=== PATIENT | female | born 1945 | race Caucasian/White ===

== ENCOUNTER 2024-07-12 18:06 | Inpatient (IN) | payer MEDICARE, OTHER ==
[~2024-07-12] VITALS: Ht 152.4 cm; Wt 48.5 kg
[2024-07-12 18:41] VITALS: BP 131/67; TEMP 99.2; O2SAT 94
[2024-07-12 20:50] VITALS: BP 156/63; TEMP 97.9; O2SAT 94
[2024-07-12] MEDS ORDERED: ACETAMINOPHEN 325 MG TABLET PO PRN (21:15)
[2024-07-12] MEDS ORDERED: RIVA20TA PO (21:33)
[2024-07-12] MEDS ORDERED: ZINC113P3 TP (21:33)
[2024-07-12] MEDS ORDERED: RXENO SQ (21:33)
[2024-07-12] MEDS ORDERED: SIMV-46 PO (21:33)
[2024-07-12] MEDS ORDERED: [UNRECOGNIZED DRUG - CODE] PO (21:33)
[2024-07-12] MEDS ORDERED: MAGN400O6 PO (21:33)
[2024-07-12] MEDS ORDERED: LEVO50TA8 PO (21:33)
[2024-07-12] MEDS ORDERED: ATOR10TA PO (21:33)
[2024-07-13] MEDS ORDERED: AL HYDROX PO SCH (00:15)
[2024-07-13] MEDS ORDERED: MAG HYDROX PO SCH (00:15)
[2024-07-13] MEDS ORDERED: SIMETH PO SCH (00:15)
[2024-07-13] MEDS ORDERED: MAGNESIUM HYDROXIDE 30 ML LIQUID UDC PO PRN (00:15)
[2024-07-13] MEDS: OXYCODONE/APAP 5-325 MG TABLET PO PRN (05:32)
[2024-07-13] MEDS: LEVOTHYROXINE SODIUM 50 MCG TABLET PO SCH (06:49)
[2024-07-13 06:59] VITALS: BP 127/70; TEMP 97.9; O2SAT 93
[2024-07-13] MEDS ORDERED: ATORVASTATIN 10 MG TABLET PO SCH (09:00)
[2024-07-13 16:15] VITALS: BP 135/55; TEMP 97.6; O2SAT 97
[2024-07-13] MEDS: RIVAROXABAN 10 MG TABLET PO SCH (17:40)
[2024-07-13 20:15] VITALS: BP 132/71; TEMP 97.7; O2SAT 91
[2024-07-13] MEDS: ATORVASTATIN 10 MG TABLET PO SCH (20:49)
[2024-07-13] MEDS: BUTALB/ACETAMINOPHEN/CAFFEINE CAPSULE PO PRN (20:50)
[2024-07-13] MEDS ORDERED: SIMVASTATIN 20 MG TABLET PO SCH (21:00)
[2024-07-14 05:09] VITALS: O2SAT 98
[2024-07-14 07:06] VITALS: BP 158/73; TEMP 98.1; O2SAT 94
[2024-07-14] MEDS: METHYL SALICYLATE/MENTHOL CREAM 28 GM TUBE TOP SCH (08:30)
[2024-07-14 09:30] LABS: BASOPHILS # (AUTO) 0.1 K/UL (0.0-0.2); BASOPHILS % (AUTO) 1.2 % (0.0-2.0); EOSINOPHILS # (AUTO) 0.4 K/uL (0.0-0.7); EOSINOPHILS % (AUTO) 4.1 % (0.0-7.0); HEMATOCRIT 33.2 % (31.2-41.9); LYMPHOCYTES # (AUTO) 0.6 K/uL (0.8-4.8); LYMPHOCYTES % (AUTO) 7.5 % (20.5-51.5); MEAN CORPUSCULAR HEMOGLOBIN 30.6 uug (24.7-32.8); MEAN CORPUSCULAR HGB CONC 33 g/dL (32.3-35.6); MONOCYTES # (AUTO) 0.8 K/uL (0.1-1.30); MONOCYTES % (AUTO) 9.3 % (0.0-11.0); NEUTROPHILS # (AUTO) 6.7 K/uL (1.8-8.9); NEUTROPHILS % (AUTO) 77.9 % (38.5-71.5); PLATELET COUNT (AUTO) 712 K/uL (179-408); RED BLOOD CELL COUNT(AUTO) 3.61 MIL/uL (3.63-4.92); RED CELL DISTRIBUTION WIDTH 14.9 % (12.3-17.7); WHITE BLOOD COUNT (AUTO) 8.6 K/uL (3.8-11.8)
[2024-07-14 09:38] LABS: DIFFERENTIAL COMMENT 1
[2024-07-14] MEDS ORDERED: HYDROMORPHONE HCL 2 MG TABLET PO PRN (10:15)
[2024-07-14 10:54] LABS: ALANINE AMINOTRANSFERASE 13 U/L (14-59); ALBUMIN 2.4 g/dL (3.4-5.0); ALKALINE PHOSPHATASE 133 U/L (50-136); ASPARTATE AMINOTRANSFERASE 19 U/L (15-37); BILIRUBIN,TOTAL 0.5 mg/dL (0.2-1.0); CALCIUM 8.3 mg/dL (8.5-10.1); CARBON DIOXIDE 31 mmol/L (21-32); CHLORIDE 101 mmol/L (98-107); CHOLESTEROL 162 mg/dL (<200); CREATININE 0.8 mg/dL (0.6-1.3); GLUCOSE 130 mg/dL (74-106); HDL CHOLESTEROL 43 mg/dL (40-60); MAGNESIUM 2.2 mg/dL (1.8-2.4); PHOSPHOROUS 2.3 mg/dL (2.5-4.9); POTASSIUM 3.9 mmol/L (3.5-5.1); SODIUM SERUM 139 mmol/L (136-145); TOTAL PROTEIN, SERUM 6.8 g/dL (6.4-8.2); TRIGLYCERIDES 123 MG/DL (30-150); UREA NITROGEN, BLOOD 17 mg/dL (7-18)
[2024-07-14 12:25] LABS: IRON, SERUM 45 ug/dL (50-175)
[2024-07-14] MEDS ORDERED: OXYC-128 PO (13:58)
[2024-07-14] MEDS ORDERED: BUTA1CAP46 PO (13:58)
[2024-07-14] MEDS ORDERED: HYDR4TAB4 PO (14:00)
[2024-07-15] MEDS ORDERED: HYDR500C2 PO (11:13)
== END 2024-07-14 12:09 | disposition short-term general hospital (02) | DRG 560 ==
PROVIDERS: ADMIT Physical Medicine & Rehabilitation Pain Medicine; ATTEND Physical Medicine & Rehabilitation Pain Medicine
DX: S72.142D Displaced intertrochanteric fracture of left femur, subsequent encounter for closed fracture with routine healing (principal); D68.59 Other primary thrombophilia; W01.0XXD Fall on same level from slipping, tripping and stumbling without subsequent striking against object, subsequent encounter; D64.9 Anemia, unspecified; E03.9 Hypothyroidism, unspecified; E78.5 Hyperlipidemia, unspecified; E88.09 Other disorders of plasma-protein metabolism, not elsewhere classified; G43.909 Migraine, unspecified, not intractable, without status migrainosus; M81.0 Age-related osteoporosis without current pathological fracture; Z86.711 Personal history of pulmonary embolism; M19.90 Unspecified osteoarthritis, unspecified site; J43.9 Emphysema, unspecified; I70.0 Atherosclerosis of aorta; Z87.891 Personal history of nicotine dependence
CPT/HCPCS: 36415; 82652; 83550; 83735; 84100; 84443; 85025

== ENCOUNTER 2024-07-14 12:03 | Inpatient (IN) | payer MEDICARE, OTHER ==
[2024-07-14] VITALS (29 sets, daily range): BP systolic 94–143; BP diastolic 48–102; TEMP 97.7–98; O2SAT 91–98
[~2024-07-14] VITALS: Ht 149.9 cm; Wt 44.5 kg
[~2024-07-14 12:03] MED LIST: ATOR10TA PO; LEVO50TA8 PO; MAGN400O6 PO; RIVA20TA PO; RXENO SQ; ZINC113P3 TP; [UNRECOGNIZED DRUG - CODE] PO
[2024-07-14] MEDS ORDERED: ADENOSINE 6 MG/2 ML SYR IV ONE ×2 (12:13→12:21)
[2024-07-14] MEDS: ADENOSINE 6 MG/2 ML SYR IV ONE ×2 (12:21→12:26)
[2024-07-14] MEDS: AMIODARONE HCL IV 150 MG in IV DEXTROSE 5% 100 ML IV ONE (13:02)
[2024-07-14 13:03] LABS: BASOPHILS # (AUTO) 0.1 K/UL (0.0-0.2); BASOPHILS % (AUTO) 1.1 % (0.0-2.0); EOSINOPHILS # (AUTO) 0.3 K/uL (0.0-0.7); EOSINOPHILS % (AUTO) 3.8 % (0.0-7.0); HEMATOCRIT 33.6 % (31.2-41.9); HEMOGLOBIN 10.6 g/dL (10.9-14.3); LYMPHOCYTES # (AUTO) 0.8 K/uL (0.8-4.8); LYMPHOCYTES % (AUTO) 10.4 % (20.5-51.5); MEAN CORPUSCULAR HGB CONC 32 g/dL (32.3-35.6); MONOCYTES % (AUTO) 13.2 % (0.0-11.0); NEUTROPHILS # (AUTO) 5.7 K/uL (1.8-8.9); NEUTROPHILS % (AUTO) 71.5 % (38.5-71.5); PLATELET COUNT (AUTO) 615 K/uL (179-408); RED BLOOD CELL COUNT(AUTO) 3.65 MIL/uL (3.63-4.92); RED CELL DISTRIBUTION WIDTH 15.3 % (12.3-17.7); WHITE BLOOD COUNT (AUTO) 7.9 K/uL (3.8-11.8)
[2024-07-14 13:20] LABS: DIFFERENTIAL COMMENT 1
[2024-07-14] MEDS ORDERED: IV NORMAL SALINE 250 ML IV ONE (13:22)
[2024-07-14] MEDS ORDERED: IOHEXOL 350 100 ML INFUS..BTL ONE (13:22)
[2024-07-14] MEDS ORDERED: SWABABLE VALVE TRANSFER SET EA MC ONE (13:22)
[2024-07-14] MEDS: AMIODARONE HCL IV 450 MG in IV DEXTROSE 5% 250 ML IV PRN (13:43)
[2024-07-14 13:44] LABS: CARBON DIOXIDE 27 mmol/L (21-32); CHLORIDE 101 mmol/L (98-107); CREATININE 0.9 mg/dL (0.6-1.3); GLUCOSE 131 mg/dL (74-106); POTASSIUM 3.7 mmol/L (3.5-5.1); SODIUM SERUM 138 mmol/L (136-145); UREA NITROGEN, BLOOD 21 mg/dL (7-18)
[2024-07-14 13:57] LABS: ALANINE AMINOTRANSFERASE 16 U/L (14-59); ALBUMIN 2.3 g/dL (3.4-5.0); ALKALINE PHOSPHATASE 129 U/L (50-136); ASPARTATE AMINOTRANSFERASE 22 U/L (15-37); BILIRUBIN,DIRECT 0.3 mg/dL (0.0-0.2); BILIRUBIN,TOTAL 0.7 mg/dL (0.2-1.0); NT-PRO BNP 967 pg/mL (0-125); TOTAL PROTEIN, SERUM 6.3 g/dL (6.4-8.2)
[2024-07-14] MEDS ORDERED: BUTA1CAP46 PO (13:58)
[2024-07-14] MEDS ORDERED: OXYC-128 PO (13:58)
[2024-07-14] MEDS ORDERED: HYDR4TAB4 PO (14:00)
[2024-07-14] MEDS ORDERED: NOREPINEPHRINE 8MG/NS 250ML 250 ML IV ONE (14:05)
[2024-07-14] MEDS ORDERED: METOCLOPRAMIDE HCL 10 MG/2 ML VIAL ONE (14:06)
[2024-07-14] MEDS: METOCLOPRAMIDE HCL 10 MG/2 ML VIAL IV ONE (14:42)
[2024-07-14] MEDS: NOREPINEPHRINE 8MG/NS 250ML 250 ML IV PRN (14:59)
[2024-07-14] MEDS ORDERED: AL HYDROX PO SCH (15:00)
[2024-07-14] MEDS ORDERED: CAFFEINE PO PRN (15:00)
[2024-07-14] MEDS ORDERED: SIMETH PO SCH (15:00)
[2024-07-14] MEDS ORDERED: ACETAMINOPHEN PO PRN (15:00)
[2024-07-14] MEDS ORDERED: MAGNESIUM HYDROXIDE 30 ML LIQUID UDC PO PRN ×2 (15:00→15:45)
[2024-07-14] MEDS ORDERED: BUTALB PO PRN (15:00)
[2024-07-14] MEDS ORDERED: MAG HYDROX PO SCH (15:00)
[2024-07-14] MEDS ORDERED: ONDANSETRON 4 MG/2 ML VIAL IV PRN (15:45)
[2024-07-14] MEDS ORDERED: ACETAMINOPHEN 325 MG TABLET PO PRN (15:45)
[2024-07-14] MEDS ORDERED: PHENYLEPHRINE IV 50 MG in IV NORMAL SALINE 245 ML IV PRN (17:00)
[2024-07-14] MEDS ORDERED: PHENYLEPHRINE IV 100 MG in IV NORMAL SALINE 240 ML IV PRN (17:45)
[2024-07-14] MEDS: HYDROMORPHONE HCL 2 MG TABLET PO PRN (19:23)
[2024-07-14] MEDS: RIVAROXABAN 10 MG TABLET PO SCH (19:28)
[2024-07-14] MEDS: MELATONIN 3 MG TABLET PO SCH (21:35)
[2024-07-15] VITALS (51 sets, daily range): BP systolic 81–149; BP diastolic 44–89; TEMP 97.2–98.6; O2SAT 90–99
[2024-07-15 03:16] LABS: BASOPHILS # (AUTO) 0.1 K/UL (0.0-0.2); EOSINOPHILS # (AUTO) 0.3 K/uL (0.0-0.7); EOSINOPHILS % (AUTO) 3.3 % (0.0-7.0); HEMATOCRIT 31.3 % (31.2-41.9); HEMOGLOBIN 10.2 g/dL (10.9-14.3); LYMPHOCYTES # (AUTO) 1.2 K/uL (0.8-4.8); LYMPHOCYTES % (AUTO) 11.4 % (20.5-51.5); MEAN CORPUSCULAR HEMOGLOBIN 29.6 uug (24.7-32.8); MEAN CORPUSCULAR HGB CONC 33 g/dL (32.3-35.6); MEAN CORPUSCULAR VOLUME 90.7 fL (75.5-95.3); MONOCYTES # (AUTO) 1.5 K/uL (0.1-1.30); MONOCYTES % (AUTO) 14.4 % (0.0-11.0); NEUTROPHILS # (AUTO) 7.4 K/uL (1.8-8.9); NEUTROPHILS % (AUTO) 69.9 % (38.5-71.5); PLATELET COUNT (AUTO) 774 K/uL (179-408); RED BLOOD CELL COUNT(AUTO) 3.45 MIL/uL (3.63-4.92); RED CELL DISTRIBUTION WIDTH 15.5 % (12.3-17.7); WHITE BLOOD COUNT (AUTO) 10.6 K/uL (3.8-11.8)
[2024-07-15 03:27] LABS: DIFFERENTIAL COMMENT 1
[2024-07-15 03:41] LABS: CALCIUM 7.9 mg/dL (8.5-10.1); CARBON DIOXIDE 27 mmol/L (21-32); CHLORIDE 101 mmol/L (98-107); CREATININE 0.8 mg/dL (0.6-1.3); GLUCOSE 128 mg/dL (74-106); MAGNESIUM 2.1 mg/dL (1.8-2.4); PHOSPHOROUS 2.5 mg/dL (2.5-4.9); SODIUM SERUM 136 mmol/L (136-145); UREA NITROGEN, BLOOD 15 mg/dL (7-18)
[2024-07-15 04:12] LABS: THYROID STIMULATING HORMONE 9.612 mIU/mL (0.358-3.740)
[2024-07-15] MEDS ORDERED: MAG HYDROX/AL HYDROX/SIMETH 30 ML LIQUID UDC PO PRN (05:30)
[2024-07-15] MEDS: LEVOTHYROXINE SODIUM 50 MCG TABLET PO SCH (06:57)
[2024-07-15] MEDS: PANTOPRAZOLE SODIUM 40 MG VIAL IV SCH (08:43)
[2024-07-15] MEDS: OXYCODONE/APAP 5-325 MG TABLET PO PRN (08:53)
[2024-07-15] MEDS: AMIODARONE HCL 200 MG TABLET PO SCH (09:26)
[2024-07-15] MEDS ORDERED: HYDR500C2 PO (11:13)
[2024-07-15] MEDS: HYDROXYUREA 500 MG CAPSULE PO SCH (13:52)
[2024-07-15] MEDS: SENNOSIDES 1 TABLET PO ONE (19:35)
[2024-07-15] MEDS: ATORVASTATIN 10 MG TABLET PO SCH (20:59)
[2024-07-15] MEDS: SENNOSIDES 1 TABLET PO PRN (20:59)
[2024-07-15] MEDS ORDERED: MELATONIN 3 MG TABLET PO SCH (21:00)
[2024-07-15] MEDS: MELATONIN 3 MG TABLET PO SCH (21:03)
[2024-07-15] MEDS ORDERED: PIPERACILLIN SODIUM/TAZOBACTAM 3.375 G in IV DEXTROSE 5% 50 ML IV SCH (22:00)
[2024-07-15] MEDS ORDERED: PIPERACILLIN/TAZOBACTAM/D5W 50 ML IV ONE ×2 (23:49)
[2024-07-16] VITALS (20 sets, daily range): BP systolic 99–126; BP diastolic 42–75; TEMP 98–98.8; O2SAT 89–99
[2024-07-16] MEDS: PIPERACILLIN SODIUM/TAZOBACTAM 3.375 G in IV DEXTROSE 5% 50 ML IV SCH (00:02)
[2024-07-16 02:17] LABS: *BILIRUBIN,URIN NEGATIVE (NEGATIVE); *BLOOD, URINE 2+ (NEGATIVE); *CLARITY,URINE CLEAR (CLEAR); *COLOR,URINE YELLOW (YELLOW); *KETONES,URINE NEGATIVE (NEGATIVE); *PROTEIN,URINE TRACE (NEGATIVE); *UROBILINOGEN,URINE 0.2 E.U./dl (NORMAL); LEUKOCYTE ESTERASE ,URINE 3+ (NEGATIVE); NITRITE, URINE POSITIVE (NEGATIVE); UGLUCOSE NEGATIVE (NEGATIVE)
[2024-07-16 02:46] LABS: BACTERIA,URINE MANY /HPF (NONE SEEN); SQUAMOUS EPITHELIAL CELL,UR MODERATE /HPF (NONE SEEN); WBC,URINE 20-50 /HPF (0-3)
[2024-07-16 02:47] LABS: MUCUS,URINE FEW /LPF (0-FEW); YEAST,URINE FEW /HPF (NONE SEEN)
[2024-07-16 05:25] LABS: BASOPHILS # (AUTO) 0.1 K/UL (0.0-0.2); BASOPHILS % (AUTO) 1.1 % (0.0-2.0); EOSINOPHILS # (AUTO) 0.3 K/uL (0.0-0.7); EOSINOPHILS % (AUTO) 3.7 % (0.0-7.0); HEMATOCRIT 28.4 % (31.2-41.9); HEMOGLOBIN 9.3 g/dL (10.9-14.3); LYMPHOCYTES # (AUTO) 1.2 K/uL (0.8-4.8); LYMPHOCYTES % (AUTO) 12.7 % (20.5-51.5); MEAN CORPUSCULAR HEMOGLOBIN 30.2 uug (24.7-32.8); MEAN CORPUSCULAR HGB CONC 33 g/dL (32.3-35.6); MEAN CORPUSCULAR VOLUME 91.9 fL (75.5-95.3); MONOCYTES # (AUTO) 1.1 K/uL (0.1-1.30); MONOCYTES % (AUTO) 12.4 % (0.0-11.0); NEUTROPHILS # (AUTO) 6.5 K/uL (1.8-8.9); NEUTROPHILS % (AUTO) 70.1 % (38.5-71.5); PLATELET COUNT (AUTO) 625 K/uL (179-408); RED BLOOD CELL COUNT(AUTO) 3.09 MIL/uL (3.63-4.92); RED CELL DISTRIBUTION WIDTH 14.8 % (12.3-17.7); WHITE BLOOD COUNT (AUTO) 9.3 K/uL (3.8-11.8)
[2024-07-16 05:53] LABS: IRON, SERUM 43 ug/dL (50-175)
[2024-07-16 06:01] LABS: ALANINE AMINOTRANSFERASE 18 U/L (14-59); ALKALINE PHOSPHATASE 151 U/L (50-136); ASPARTATE AMINOTRANSFERASE 21 U/L (15-37); BILIRUBIN,TOTAL 0.6 mg/dL (0.2-1.0); CARBON DIOXIDE 31 mmol/L (21-32); CHLORIDE 102 mmol/L (98-107); CREATININE 0.8 mg/dL (0.6-1.3); GLUCOSE 108 mg/dL (74-106); MAGNESIUM 2.3 mg/dL (1.8-2.4); PHOSPHOROUS 3.2 mg/dL (2.5-4.9); POTASSIUM 4.1 mmol/L (3.5-5.1); SODIUM SERUM 137 mmol/L (136-145); TOTAL PROTEIN, SERUM 5.6 g/dL (6.4-8.2); UREA NITROGEN, BLOOD 12 mg/dL (7-18)
[2024-07-16] MEDS: PIPERACILLIN SODIUM/TAZOBACTAM 3.375 G in IV DEXTROSE 5% 100 ML IV SCH (13:47)
[2024-07-16] MEDS: FLUTICASONE/VILANTEROL 1 EACH BLST.W.DEV INH SCH (13:47)
[2024-07-16] MEDS: ENSURE ENLIVE (VAN) 240 ML LIQUID PO SCH (17:25)
[2024-07-16] MEDS: ALBUTEROL SULFATE 2.5 MG/ 0.5 ML NEBU NEB PRN (19:57)
[2024-07-16] MEDS: IPRATROPIUM BROMIDE 0.5 MG/2.5 ML NEBU NEB PRN (19:57)
[2024-07-17] VITALS (7 sets, daily range): BP systolic 109–145; BP diastolic 54–70; TEMP 97.5–98.4; O2SAT 93–96
[2024-07-17] MEDS: PANTOPRAZOLE SODIUM 40 MG TABLET.DR PO SCH (06:44)
[2024-07-17] MEDS ORDERED: LACTULOSE 20 G/30 ML LIQUID UDC PO PRN (09:15)
[2024-07-17] MEDS: LACTULOSE 20 G/30 ML LIQUID UDC PO ONE (09:58)
[2024-07-17] MEDS: BISACODYL 10 MG SUPP.RECT RC ONE (10:36)
[2024-07-17] MEDS ORDERED: MAG30ORA PO (15:43)
[2024-07-17] MEDS ORDERED: FLUT1BLS INH (15:43)
[2024-07-17] MEDS ORDERED: AMIO200T6 PO (15:43)
[2024-07-17] MEDS ORDERED: ATOR10TA PO (15:43)
[2024-07-17] MEDS ORDERED: MELA3TAB41 PO (15:43)
[2024-07-17] MEDS ORDERED: ACID1TAB4 PO (15:43)
[2024-07-17] MEDS ORDERED: SENN-175 PO (15:43)
[2024-07-17] MEDS ORDERED: MAGN400O6 PO (15:43)
[2024-07-17] MEDS ORDERED: PANT40TA49 PO (15:43)
[2024-07-17] MEDS ORDERED: HYDR2TAB7 PO (15:43)
[2024-07-17] MEDS ORDERED: DOCU-141 PO (15:43)
[2024-07-17] MEDS ORDERED: Lactose-Free Food PO (15:43)
[2024-07-17] MEDS ORDERED: IPRA0.2S6 NEB (15:43)
[2024-07-17] MEDS ORDERED: ACET325T53 PO (15:43)
[2024-07-17] MEDS ORDERED: ALBU2.5V13 NEB (15:43)
[2024-07-17] MEDS ORDERED: AMOX-430 PO (15:43)
== END 2024-07-17 17:06 | DRG 308 ==
LOC: ER 12:03 → CCU 15:52 → TELE3 07-16 10:55
PROC: 02HV33Z Insertion of Infusion Device into Superior Vena Cava, Percutaneous Approach (ICD-10-PCS; principal; 2024-07-14)
DX: I48.0 Paroxysmal atrial fibrillation (principal); E43 Unspecified severe protein-calorie malnutrition; R57.1 Hypovolemic shock; J69.0 Pneumonitis due to inhalation of food and vomit; I50.31 Acute diastolic (congestive) heart failure; Z68.1 Body mass index [BMI] 19.9 or less, adult; D68.59 Other primary thrombophilia; I47.10 Supraventricular tachycardia, unspecified; S72.002D Fracture of unspecified part of neck of left femur, subsequent encounter for closed fracture with routine healing; W19.XXXD Unspecified fall, subsequent encounter; E78.5 Hyperlipidemia, unspecified; E03.9 Hypothyroidism, unspecified; D64.9 Anemia, unspecified; J44.9 Chronic obstructive pulmonary disease, unspecified; J43.2 Centrilobular emphysema; E88.09 Other disorders of plasma-protein metabolism, not elsewhere classified; M81.0 Age-related osteoporosis without current pathological fracture; M15.9 Polyosteoarthritis, unspecified; D75.839 Thrombocytosis, unspecified; R79.89 Other specified abnormal findings of blood chemistry; K59.00 Constipation, unspecified; I11.0 Hypertensive heart disease with heart failure; I28.8 Other diseases of pulmonary vessels; Z86.73 Personal history of transient ischemic attack (TIA), and cerebral infarction without residual deficits; Z86.711 Personal history of pulmonary embolism; Z79.01 Long term (current) use of anticoagulants; Z79.890 Hormone replacement therapy; Z74.09 Other reduced mobility; Z79.899 Other long term (current) drug therapy; Z87.891 Personal history of nicotine dependence
CPT/HCPCS: 36415; 71045; 71275; 82378; 83550; 83735; 84100; 84443; 84484; 85025; 85730; 93005; 93307; 94640; G0378; J0153; J0282; J2470; J2543; J2765; J3590; J7040; J7050; Q9967

== ENCOUNTER 2024-07-17 17:27 | Inpatient (IN) | payer MEDICARE, OTHER ==
[~2024-07-17] VITALS: Ht 149.9 cm; Wt 49.9 kg
[~2024-07-17 17:27] MED LIST changes: +ACET325T53 PO; +ACID1TAB4 PO; +ALBU2.5V13 NEB; +AMIO200T6 PO; +AMOX-430 PO; +DOCU-141 PO; +FLUT1BLS INH; +HYDR2TAB7 PO; +HYDR4TAB4 PO; +HYDR500C2 PO; +IPRA0.2S6 NEB; +Lactose-Free Food PO; +MAG30ORA PO; +MELA3TAB41 PO; +OXYC-128 PO; +PANT40TA49 PO; -RXENO SQ; +SENN-175 PO
[2024-07-17 17:30] VITALS: BP 141/73; TEMP 98; O2SAT 97
[2024-07-17] MEDS ORDERED: ALBUTEROL SULFATE 2.5 MG/ 0.5 ML NEBU NEB PRN (20:15)
[2024-07-17] MEDS ORDERED: IPRATROPIUM BROMIDE 0.5 MG/2.5 ML NEBU NEB PRN (20:15)
[2024-07-17] MEDS: SENNOSIDES 1 TABLET PO SCH (21:00)
[2024-07-17] MEDS: DOCUSATE SODIUM 100 MG CAPSULE PO SCH (21:00)
[2024-07-17] MEDS ORDERED: REMEDY ESSENTIAL ZINC PASTE 113 GM TOP PRN (21:30)
[2024-07-17] MEDS ORDERED: AMOXICILLIN-CLAVUL 875-125MG TABLET ONE (21:55)
[2024-07-17] MEDS: ATORVASTATIN 10 MG TABLET PO SCH (22:02)
[2024-07-17] MEDS: AMOXICILLIN-CLAVUL 875-125MG TABLET PO SCH (22:02)
[2024-07-17] MEDS: AMIODARONE HCL 200 MG TABLET PO SCH (22:02)
[2024-07-17] MEDS: MELATONIN 3 MG TABLET PO SCH (22:03)
[2024-07-17 23:09] VITALS: BP 153/58; TEMP 98.1; O2SAT 96
[2024-07-18 04:07] VITALS: O2SAT 96
[2024-07-18] MEDS: LEVOTHYROXINE SODIUM 50 MCG TABLET PO SCH (06:41)
[2024-07-18] MEDS: PANTOPRAZOLE SODIUM 40 MG TABLET.DR PO SCH (06:41)
[2024-07-18 07:08] VITALS: BP 111/57; TEMP 97.5; O2SAT 95
[2024-07-18] MEDS ORDERED: LACTOSE FREE FOOD PO SCH (08:00)
[2024-07-18] MEDS: MIRALAX 17 GM POWD.PACK PO SCH (09:00)
[2024-07-18 09:30] VITALS: BP 121/57; O2SAT 95
[2024-07-18] MEDS: ENSURE ENLIVE (VAN) 240 ML LIQUID PO SCH (10:04)
[2024-07-18] MEDS: FLUTICASONE/VILANTEROL 1 EACH BLST.W.DEV INH SCH (10:06)
[2024-07-18] MEDS: OXYCODONE/APAP 5-325 MG TABLET PO PRN (10:07)
[2024-07-18] MEDS: ACIDOPHILUS/BULGARICUS CHEW TAB PO SCH (10:07)
[2024-07-18] MEDS: HYDROXYUREA 500 MG CAPSULE PO SCH (10:50)
[2024-07-18 16:05] VITALS: BP 113/46; TEMP 97.9; O2SAT 94
[2024-07-18] MEDS: BUTALB/ACETAMINOPHEN/CAFFEINE CAPSULE PO PRN (17:08)
[2024-07-18] MEDS: RIVAROXABAN 10 MG TABLET PO SCH (17:09)
[2024-07-18 21:01] VITALS: BP 123/43; TEMP 98.2; O2SAT 97
[2024-07-19 06:53] VITALS: BP 119/78; TEMP 97.7; O2SAT 93
[2024-07-19 15:22] VITALS: BP 112/53; TEMP 97.8; O2SAT 94
[2024-07-19 21:06] VITALS: BP 125/52; TEMP 98; O2SAT 95
[2024-07-20 05:56] VITALS: BP 120/49; TEMP 97.9; O2SAT 97
[2024-07-20 08:14] LABS: BASOPHILS # (AUTO) 0.3 K/UL (0.0-0.2); BASOPHILS % (AUTO) 3.3 % (0.0-2.0); DIFFERENTIAL COMMENT 1; EOSINOPHILS # (AUTO) 0.3 K/uL (0.0-0.7); EOSINOPHILS % (AUTO) 3.6 % (0.0-7.0); HEMATOCRIT 30.7 % (31.2-41.9); HEMOGLOBIN 10.1 g/dL (10.9-14.3); LYMPHOCYTES # (AUTO) 1.2 K/uL (0.8-4.8); LYMPHOCYTES % (AUTO) 12.8 % (20.5-51.5); MEAN CORPUSCULAR HEMOGLOBIN 30.5 uug (24.7-32.8); MEAN CORPUSCULAR HGB CONC 33 g/dL (32.3-35.6); MEAN CORPUSCULAR VOLUME 92.7 fL (75.5-95.3); MONOCYTES # (AUTO) 1.1 K/uL (0.1-1.30); MONOCYTES % (AUTO) 12.1 % (0.0-11.0); NEUTROPHILS # (AUTO) 6.3 K/uL (1.8-8.9); NEUTROPHILS % (AUTO) 68.2 % (38.5-71.5); PLATELET COUNT (AUTO) 870 K/uL (179-408); RED BLOOD CELL COUNT(AUTO) 3.31 MIL/uL (3.63-4.92); RED CELL DISTRIBUTION WIDTH 15.2 % (12.3-17.7); WHITE BLOOD COUNT (AUTO) 9.2 K/uL (3.8-11.8)
[2024-07-20 08:57] LABS: ALANINE AMINOTRANSFERASE 17 U/L (14-59); ALBUMIN 2.3 g/dL (3.4-5.0); ALKALINE PHOSPHATASE 149 U/L (50-136); ASPARTATE AMINOTRANSFERASE 16 U/L (15-37); BILIRUBIN,TOTAL 0.5 mg/dL (0.2-1.0); CALCIUM 8.2 mg/dL (8.5-10.1); CARBON DIOXIDE 28 mmol/L (21-32); CHLORIDE 104 mmol/L (98-107); CREATININE 0.9 mg/dL (0.6-1.3); GLUCOSE 103 mg/dL (74-106); MAGNESIUM 2.1 mg/dL (1.8-2.4); PHOSPHOROUS 3.3 mg/dL (2.5-4.9); POTASSIUM 3.8 mmol/L (3.5-5.1); SODIUM SERUM 139 mmol/L (136-145); TOTAL PROTEIN, SERUM 6.3 g/dL (6.4-8.2); UREA NITROGEN, BLOOD 16 mg/dL (7-18)
[2024-07-20 15:24] VITALS: BP 99/51; TEMP 98.2; O2SAT 91
[2024-07-20 16:54] VITALS: O2SAT 95
[2024-07-20 19:31] VITALS: BP 119/47; TEMP 98.1; O2SAT 97
[2024-07-20] MEDS: BUTALB/ACETAMINOPHEN/CAFFEINE CAPSULE PO PRN (23:02)
[2024-07-21] MEDS ORDERED: ACETAMINOPHEN/CODEINE 300-30 MG TABLET PO PRN (00:30)
[2024-07-21 06:51] VITALS: BP 127/47; TEMP 98; O2SAT 93
[2024-07-21] MEDS: IBUPROFEN 600 MG TABLET PO PRN (12:38)
[2024-07-21 15:39] VITALS: BP 125/77; TEMP 97.9; O2SAT 94
[2024-07-21 16:00] VITALS: O2SAT 97
[2024-07-21 20:47] VITALS: BP 113/56; TEMP 98.2; O2SAT 96
[2024-07-21] MEDS: TEMAZEPAM 7.5 MG CAPSULE PO PRN (22:46)
[2024-07-22 06:00] VITALS: BP 117/52; TEMP 98.2; O2SAT 97
[2024-07-22 16:15] VITALS: BP 128/57; TEMP 98; O2SAT 95
[2024-07-22 20:00] VITALS: BP 101/44; TEMP 98; O2SAT 98
[2024-07-23 06:00] VITALS: BP 98/57; TEMP 97.9; O2SAT 99
[2024-07-23] MEDS: LACTULOSE 20 G/30 ML LIQUID UDC PO PRN (14:05)
[2024-07-23 16:07] VITALS: BP 107/55; TEMP 97.9; O2SAT 94
[2024-07-23 19:30] VITALS: BP 134/61; TEMP 97.8; O2SAT 94
[2024-07-24 06:34] VITALS: BP 115/52; TEMP 97.7; O2SAT 95
[2024-07-24 15:30] VITALS: BP 128/59; TEMP 97.9; O2SAT 99
[2024-07-24 20:30] VITALS: BP 131/56; TEMP 98.1; O2SAT 93
[2024-07-25 06:51] VITALS: BP 116/54; TEMP 97.5; O2SAT 91
[2024-07-25] MEDS: OXYCODONE/APAP 5-325 MG TABLET PO PRN (14:28)
[2024-07-25 16:17] VITALS: BP 103/50; TEMP 98; O2SAT 95
[2024-07-25 20:16] VITALS: BP 131/65; TEMP 98.1; O2SAT 97
[2024-07-25 22:28] LABS: *BILIRUBIN,URIN NEGATIVE (NEGATIVE); *BLOOD, URINE 1+ (NEGATIVE); *COLOR,URINE YELLOW (YELLOW); *KETONES,URINE NEGATIVE (NEGATIVE); *PROTEIN,URINE NEGATIVE (NEGATIVE); *UROBILINOGEN,URINE 0.2 E.U./dl (NORMAL); LEUKOCYTE ESTERASE ,URINE 2+ (NEGATIVE); NITRITE, URINE POSITIVE (NEGATIVE); UGLUCOSE NEGATIVE (NEGATIVE)
[2024-07-25 22:40] LABS: *CLARITY,URINE SLIGHTLY CLOUDY (CLEAR)
[2024-07-25 22:44] LABS: BACTERIA,URINE MODERATE /HPF (NONE SEEN); SQUAMOUS EPITHELIAL CELL,UR FEW /HPF (NONE SEEN); WBC,URINE 50-80 /HPF (0-3)
[2024-07-26 06:11] VITALS: BP 106/50; TEMP 97.9; O2SAT 97
[2024-07-26 07:26] LABS: BASOPHILS # (AUTO) 0.2 K/UL (0.0-0.2); BASOPHILS % (AUTO) 3.2 % (0.0-2.0); EOSINOPHILS # (AUTO) 0.3 K/uL (0.0-0.7); EOSINOPHILS % (AUTO) 4.5 % (0.0-7.0); HEMATOCRIT 29.6 % (31.2-41.9); HEMOGLOBIN 9.7 g/dL (10.9-14.3); LYMPHOCYTES # (AUTO) 1.1 K/uL (0.8-4.8); LYMPHOCYTES % (AUTO) 16.9 % (20.5-51.5); MEAN CORPUSCULAR HEMOGLOBIN 30.3 uug (24.7-32.8); MEAN CORPUSCULAR HGB CONC 33 g/dL (32.3-35.6); MEAN CORPUSCULAR VOLUME 93.1 fL (75.5-95.3); MONOCYTES # (AUTO) 0.7 K/uL (0.1-1.30); NEUTROPHILS # (AUTO) 4.3 K/uL (1.8-8.9); NEUTROPHILS % (AUTO) 64.4 % (38.5-71.5); PLATELET COUNT (AUTO) 864 K/uL (179-408); RED BLOOD CELL COUNT(AUTO) 3.18 MIL/uL (3.63-4.92); RED CELL DISTRIBUTION WIDTH 16.1 % (12.3-17.7); WHITE BLOOD COUNT (AUTO) 6.7 K/uL (3.8-11.8)
[2024-07-26 07:33] LABS: DIFFERENTIAL COMMENT 1
[2024-07-26 07:36] LABS: CALCIUM 8.8 mg/dL (8.5-10.1); CARBON DIOXIDE 27 mmol/L (21-32); CHLORIDE 106 mmol/L (98-107); CREATININE 1.2 mg/dL (0.6-1.3); GLUCOSE 101 mg/dL (74-106); POTASSIUM 4.6 mmol/L (3.5-5.1); SODIUM SERUM 141 mmol/L (136-145); UREA NITROGEN, BLOOD 22 mg/dL (7-18)
[2024-07-26] MEDS: NITROFURANTOIN/NITROFURAN MAC 100 MG CAPSULE PO SCH (08:41)
[2024-07-26 15:20] VITALS: BP 127/57; TEMP 97.6; O2SAT 96
[2024-07-26 19:57] VITALS: BP 135/62; TEMP 99; O2SAT 94
[2024-07-27 05:43] VITALS: BP 136/57; TEMP 97.7; O2SAT 94
[2024-07-27 16:17] VITALS: BP 115/51; TEMP 97.9; O2SAT 94
[2024-07-27 20:00] VITALS: BP 95/51; TEMP 98.5; O2SAT 95
[2024-07-28 06:00] VITALS: BP 111/52; TEMP 98.1; O2SAT 98
[2024-07-28 16:09] VITALS: BP 120/60; TEMP 98; O2SAT 94
[2024-07-28 21:15] VITALS: BP 109/51; TEMP 98; O2SAT 98
[2024-07-29 07:18] VITALS: BP 122/60; TEMP 97.6; O2SAT 95
[2024-07-29 15:13] VITALS: BP 133/52; TEMP 98; O2SAT 100
[2024-07-29 20:24] VITALS: BP 142/60; TEMP 98; O2SAT 94
[2024-07-30 01:18] VITALS: O2SAT 96
[2024-07-30 05:35] VITALS: TEMP 98
[2024-07-30] MEDS ORDERED: NITR100C11 PO (12:05)
[2024-08-01] MEDS ORDERED: LEVO50TA8 PO (18:40)
[2024-08-01] MEDS ORDERED: FLUT1BLS IH (18:40)
[2024-08-01] MEDS ORDERED: ATOR10TA PO (18:40)
[2024-08-01] MEDS ORDERED: AMIO200T5 PO (18:40)
[2024-08-01] MEDS ORDERED: RIVA20TA PO (18:40)
[2024-08-01] MEDS ORDERED: HYDR500C2 PO (18:40)
[2024-08-01] MEDS ORDERED: PANT40TA49 PO (18:40)
== END 2024-07-30 12:45 | disposition home health service (06) | DRG 308 ==
PROVIDERS: ADMIT Physical Medicine & Rehabilitation Pain Medicine; ATTEND Physical Medicine & Rehabilitation Pain Medicine
DX: I48.91 Unspecified atrial fibrillation (principal); E43 Unspecified severe protein-calorie malnutrition; I50.31 Acute diastolic (congestive) heart failure; D68.59 Other primary thrombophilia; N39.0 Urinary tract infection, site not specified; E03.9 Hypothyroidism, unspecified; E78.5 Hyperlipidemia, unspecified; E88.09 Other disorders of plasma-protein metabolism, not elsewhere classified; M19.90 Unspecified osteoarthritis, unspecified site; M81.0 Age-related osteoporosis without current pathological fracture; S72.002D Fracture of unspecified part of neck of left femur, subsequent encounter for closed fracture with routine healing; W19.XXXD Unspecified fall, subsequent encounter; D75.839 Thrombocytosis, unspecified; E86.1 Hypovolemia; F17.210 Nicotine dependence, cigarettes, uncomplicated; Z86.711 Personal history of pulmonary embolism; J43.9 Emphysema, unspecified; Z79.899 Other long term (current) drug therapy; D64.89 Other specified anemias
CPT/HCPCS: 36415; 73502; 83735; 84100; 85025; A4663